=== PATIENT | female | born 1955 | race Caucasian/White ===

== ENCOUNTER → 2018-09-29 | Outpatient (CLI) | payer BC ==
--- NOTE | 2018-09-29 15:03 | RADIOLOGY REPORT (SQ) ---
EXAM DESCRIPTION: CERV SP 6 OR MORE COMPLETED DATE/TIME: 09/29/2018 2:52 pm REASON FOR STUDY: NECK PAIN M54.2 CERVICALGIA COMPARISON: None. NUMBER OF VIEWS: Seven views. TECHNIQUE: AP, lateral, obliques, flexion, extension, and odontoid radiographic images acquired of t he cervical spine. LIMITATIONS: None. FINDINGS: MINERALIZATION: Normal. ALIGNMENT: There is reversal of the normal cervical lordosis with mild retrolisthesis of C5 on C6. FLEXION/EXTENSION: No instability. VERTEBRAE: Vertebral bodies of normal height. DISCS: There is disc space narrowing at C5-C6. FORAMINA: No osteophytes or foraminal narrowing. LATERAL AND POSTERIOR ELEMENTS: Facets, lateral masses, and spinous processes without significant fin dings. HARDWARE: None in the spine. SOFT TISSUES: No masses or calcifications. Lung apices clear. OTHER: No other significant finding. IMPRESSION: Degenerative changes most marked at C5-C6. No instability. TECHNICAL DOCUMENTATION: JOB ID: [id number] [employer]- All Rights Reserved Reading location - IP/workstation name: [email or web address]
== END ==
LOC: RAD 14:31
PROVIDERS: ATTEND Otolaryngology
DX: M54.2 Cervicalgia (principal)
CPT/HCPCS: 72052